=== PATIENT | female | born 1970 | race Caucasian/White ===

== ENCOUNTER 2017-04-06 10:53 | Emergency (ER) | payer OTHER ==
[~2017-04-06] VITALS: Ht 172.7 cm; Wt 72.6 kg
[2017-04-06] MEDS ORDERED: AUGMENTIN 875-1 EACH PO (11:26)
--- NOTE | 2017-04-06 11:27 | Emergency Room Report ---
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 N Clinical Suspician of Infection? Y Mental Status: 1 - Regular (Normal Baseline) Sepsis Risk:Low Sepsis Risk Have you (or family members/close friends) recently traveled outside the [place]? N If Yes, where/when: Have you had exposure to infectious disease within the past month? TB? Other? Specify: Right anterior thigh, right forearm bites sustained from her dog when her dogs started fighting this morning. Their shots are UTD. She immediately irrigated these areas. Event occurred about five hours GRAPHIC DESIGN INTERN. ALLERGIES Coded Allergies: No Known Drug Allergies (04/06/17) Home Medications Reported Medications No Known Home Medications History Medical History General CAD? No Angina: No AK: No Hypertension? No Hyperlipidemia? No CHF? No DVT? No PE? No COPD? No Asthma? No Anemia? No GERD? No Gastric ulcers? No GI Bleed? No Hernia? No Thyroid Problems? No Hypothyroidism? No CVA? No Seizures? No Diabetes? No Renal Insuffiency? No End Stage Renal Disease? No UTI? No Stones? No BPH? No GB Disease: No Nephritic Syndrome? No Asplenia? No Hepatitis? No Sickle Cell Disease? No Arthritis? No Migraines? No Cataracts? No Glaucoma? No MRSA? No HIV? No TB? No Anxiety? No Depression? No Cancer? No Site: N More? 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 Cardiovascular no peripheral edema Extremities abrasions, anterior right thigh, small laceration 0.5 cm to right forearm, no tendon exposure, no FB, shallow, no bleeding. No bruising. Strength 5 Upper Ext (L), 5 Upper Ext (R), 5 Lower Ext (L), 5 Lower Ext (R) Neurologic alert, no motor/sensory deficits, abnormal cerebellar tests Skin intact (see above) Medical Decision Making LABS/Meds/Orders Pt receiving controlled substance in ED? No Departure Departure Time of Disposition 1122 Disposition DC Home or Self Care(routine) Clinical Impression Primary Impression: Dog bite of right thigh Qualifiers: Encounter type: initial encounter Qualified Code: S71.151A - Open bite, right thigh, initial encounter Secondary Impressions: Dog bite of right forearm without complication Qualifiers: Encounter type: initial encounter Qualified Code: S51.851A - Open bite of right forearm, initial encounter Condition STABLE Patient Instructions DI for Dog Bite Additional Instructions Hot soaks twice a day, loosely bandage, need wound check at your family doctor's office in one to two days, watch for infection, take Aleve as needed, Rx Augmentin Discharge Counseling Counseled pt/family regarding diagnosis, medications/RX, home care, follow up needs Prescriptions Current Visit Scripts Amoxicillin/Potassium Clav (Augmentin 875-125 Tablet) 1 EACH PO BID #20 TAB ED Critical Care Critical Care No at 1126
--- NOTE | 2017-04-06 11:27 | Emergency Room Report ---
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 N Clinical Suspician of Infection? Y Mental Status: 1 - Regular (Normal Baseline) Sepsis Risk:Low Sepsis Risk Have you (or family members/close friends) recently traveled outside the [place]? N If Yes, where/when: Have you had exposure to infectious disease within the past month? TB? Other? Specify: Right anterior thigh, right forearm bites sustained from her dog when her dogs started fighting this morning. Their shots are UTD. She immediately irrigated these areas. Event occurred about five hours VISUAL PRESENTATION MANAGER. ALLERGIES Coded Allergies: No Known Drug Allergies (04/06/17) Home Medications Reported Medications No Known Home Medications History Medical History General CAD? No Angina: No NE: No Hypertension? No Hyperlipidemia? No CHF? No DVT? No PE? No COPD? No Asthma? No Anemia? No GERD? No Gastric ulcers? No GI Bleed? No Hernia? No Thyroid Problems? No Hypothyroidism? No CVA? No Seizures? No Diabetes? No Renal Insuffiency? No End Stage Renal Disease? No UTI? No Stones? No BPH? No GB Disease: No Nephritic Syndrome? No Asplenia? No Hepatitis? No Sickle Cell Disease? No Arthritis? No Migraines? No Cataracts? No Glaucoma? No MRSA? No HIV? No TB? No Anxiety? No Depression? No Cancer? No Site: N More? No Immunization Hx DT/Tetanus 5-10 Years Ago Surgical Hx Previous Surgery?Y Back Surgery [employer] Hx LMP menopause Social History Smoking Hx Smoker: Current Every Day Smoker Tobacco: Yes Type Cigarettes Packs/day 1 1/2 - 2 Packs Are you/the child exposed to second-hand smoke: No Alcohol Alcohol: No Review of Systems All Other Systems Reviewed and Negative Skin see HPI Physical Exam Vital Signs Vital Signs Date Time Temp Pulse Resp B/P Pulse O2 O2 Flow FiO2 Ox Delivery Rate 04/06 1103 97.7 83 20 175/97 97 General Appearance normal appearance, WD/WN, no apparent distress Eye Exam - bilateral eye normal exam, bilateral eye PERRL Respiratory Status No: respiratory distress. Cardiovascular no peripheral edema Extremities abrasions, anterior right thigh, small laceration 0.5 cm to right forearm, no tendon exposure, no FB, shallow, no bleeding. No bruising. Strength 5 Upper Ext (L), 5 Upper Ext (R), 5 Lower Ext (L), 5 Lower Ext (R) Neurologic alert, no motor/sensory deficits, abnormal cerebellar tests Skin intact (see above) Medical Decision Making LABS/Meds/Orders Pt receiving controlled substance in ED? No Departure Departure Time of Disposition 1122 Disposition DC Home or Self Care(routine) Clinical Impression Primary Impression: Dog bite of right thigh Qualifiers: Encounter type: initial encounter Qualified Code: S71.151A - Open bite, right thigh, initial encounter Secondary Impressions: Dog bite of right forearm without complication Qualifiers: Encounter type: initial encounter Qualified Code: S51.851A - Open bite of right forearm, initial encounter Condition STABLE Patient Instructions DI for Dog Bite Additional Instructions Hot soaks twice a day, loosely bandage, need wound check at your family doctor's office in one to two days, watch for infection, take Aleve as needed, Rx Augmentin Discharge Counseling Counseled pt/family regarding diagnosis, medications/RX, home care, follow up needs Prescriptions Current Visit Scripts Amoxicillin/Potassium Clav (Augmentin 875-125 Tablet) 1 EACH PO BID #20 TAB ED Critical Care Critical Care No at 1126
--- OUTSIDE RECORDS SUMMARY | 2017-04-06 11:34 | External Medical Summary Rpt ---
Demographics Home Phone Preferred Language Upper Sorbian Marital Status Unknown Holiness Affiliation Unknown Race Unknown Ethnic Group Unknown Author Author SAMEER Address Unknown Phone Purpose Continuity of Care Document - 05-03-2015 through 2016
--- OUTSIDE RECORDS SUMMARY | 2017-04-06 11:34 | External Medical Summary Rpt ---
Author Author [employer], [employer] Organization [employer] Address Unknown Phone Unavailable Results UA Observa Value Referen Units Interpr Notes Date tion ce etation Range UA Light No No No No May 06 Color Yellow informa informa informa informa 2014 tion in tion in tion in tion in 7:15 PM source source source source data data data data UA Clear Clear No No No May 06 Appear informa informa informa 2014 tion in tion in tion in 7:15 PM source source source data data data UA Negativ Negativ No No No May 06 Glucose e e informa informa informa 2014 tion in tion in tion in 7:15 PM source source source data data data UA Negativ Negativ No No No May 06 Ketones e e informa informa informa 2014 tion in tion in tion in 7:15 PM source source source data data data UA Trace Negativ No Abnorma No May 06 Blood e informa l informa 2014 tion in tion in 7:15 PM source source data data UA pH 5.5 4.8 - No No Referen May 06 8.0 informa informa ce 2014 tion in tion in range 7:15 PM source source valid data data for random specime ns only. UA Negativ Negativ No No No May 06 Protein e e informa informa informa 2014 tion in tion in tion in 7:15 PM source source source data data data UA Normal <=1 No No No May 06 Urobili mg/dl informa informa informa 2014 nogen tion in tion in tion in 7:15 PM source source source data data data UA Negativ Negativ No No No May 06 Nitrite e e informa informa informa 2014 tion in tion in tion in 7:15 PM source source source data data data UA Leuk Small Negativ No Abnorma No May 06 Est e informa l informa 2014 tion in tion in 7:15 PM source source data data UA Spec 1.009 1.001 - No No Referen May 06 Grav 1.035 informa informa ce 2014 tion in tion in range 7:15 PM source source valid data data for random specime ns only. UA WBC 5 0 - 4 /HPF High No Apr 28 informa 2014 tion in 7:15 PM source data UA RBC 3 0 - 3 /HPF No No Apr 28 informa informa 2014 tion in tion in 7:15 PM source source data data UA 4+ No No No No Apr 28 Squam informa informa informa informa 2015 Epi tion in tion in tion in tion in 7:15 PM source source source source data data data data UA Trace No No No No Apr 28 Mucous informa informa informa informa 2015 tion in tion in tion in tion in 7:15 PM source source source source data data data data UA Trace No No Abnorma No Apr 28 Bacteri informa informa l informa 2015 a tion in tion in tion in 7:15 PM source source source data data data UA Observa Value Referen Units Interpr Notes Date tion ce etation Range UA Yellow No No No No Apr 25 Color informa informa informa informa 2014 tion in tion in tion in tion in 11:10 source source source source PM data data data data UA Clear Clear No No No Apr 25 Appear informa informa informa 2014 tion in tion in tion in 11:10 source source source PM data data data UA Negativ Negativ No No No Apr 25 Glucose e e informa informa informa 2014 tion in tion in tion in 11:10 source source source PM data data data UA Negativ Negativ No No No Aug 25 Ketones e e informa informa informa 2014 tion in tion in tion in 11:10 source source source PM data data data UA Moderat Negativ No Abnorma No Apr 25 Blood e e informa l informa 2014 tion in tion in 11:10 source source PM data data UA pH 6.0 4.8 - No No Referen Aug 25 8.0 informa informa ce 2014 tion in tion in range 11:10 source source valid PM data data for random specime ns only. UA 30 Negativ No Abnorma No Aug 25 Protein mg/dl e informa l informa 2014 tion in tion in 11:10 source source PM data data UA Normal <=1 No No No Apr 25 Urobili mg/dl informa informa informa 2014 nogen tion in tion in tion in 11:10 source source source PM data data data UA Negativ Negativ No No No Apr 25 Nitrite e e informa informa informa 2014 tion in tion in tion in 11:10 source source source PM data data data UA Leuk Negativ Negativ No No No Apr 25 Est e e informa informa informa 2014 tion in tion in tion in 11:10 source source source PM data data data UA Spec 1.017 1.001 - No No Referen May 03 Grav 1.035 informa informa ce 2014 tion in tion in range 11:10 source source valid PM data data for random specime ns only. UA WBC 1 0 - 4 /HPF No No Apr 25 informa informa 2014 tion in tion in 11:10 source source PM data data UA RBC 4 0 - 3 /HPF High No Aug 25 informa 2014 tion in 11:10 source PM data UA 4+ No No No No Apr 25 Squam informa informa informa informa 2015 Epi tion in tion in tion in tion in 11:10 source source source source PM data data data data UA 2+ No No No No Apr 25 Mucous informa informa informa informa 2014 tion in tion in tion in tion in 11:10 source source source source PM data data data data DOA Screen Observa Value Referen Units Interpr Notes Date tion ce etation Range Cannabi Absent 50 No No No Aug 25 noid ng/mL informa informa informa 2015 Screen tion in tion in tion in 9:21 PM source source source data data data Benzodi Absent 200 No No No Apr 25 azepine ng/mL informa informa informa 2015 s tion in tion in tion in 9:21 PM Screen source source source data data data Cocaine Absent 150 No No No Aug 25 Screen ng/mL informa informa informa 2014 tion in tion in tion in 9:21 PM source source source data data data Opiate Presump 300 No Abnorma No Aug 25 300 tive ng/mL informa l informa 2015 Screen Pos tion in tion in 9:21 PM source source data data Barbitu Absent 200 No No No Apr 25 rate ng/mL informa informa informa 2014 Screen tion in tion in tion in 9:21 PM source source source data data data Ampheta Absent 500 No No No Apr 25 mine ng/mL informa informa informa 2014 Screen tion in tion in tion in 9:21 PM source source source data data data Phencyc Absent 25 No No No May 03 lidine ng/mL informa informa informa 2014 Screen tion in tion in tion in 9:21 PM source source source data data data Methado Absent 300 No No No May 03 ne ng/mL informa informa informa 2014 Screen tion in tion in tion in 9:21 PM source source source data data data Oxycodo Absent 100 No No No Apr 25 ne ng/mL informa informa informa 2014 Screen tion in tion in tion in 9:21 PM source source source data data data 6 AM Presump 10 No Abnorma No Apr 25 (Heroin tive ng/mL informa l informa 2014 ) Pos tion in tion in 9:21 PM Screen source source data data Bupreno Absent 5 ng/mL No No No May 03 rphine informa informa informa 2014 Screen tion in tion in tion in 9:21 PM source source source data data data Creatin 201.0 No mg/dL No \.br\Gr May 03 ine Ur informa informa eater 2015 tion in tion in than 9:21 PM source source 20: data data Consist ent with valid sample\ .br\Gre ater than 2 but less than 20: Possibl e dilutio n\.br\L ess than 2: Questio nable valid sample Procedu These No No No No Apr 25 re Note drug informa informa informa informa 2014 Screen classes tion in tion in tion in tion in 9:21 PM have source source source source been data data data data screene d by immunoa ssay and are for medical purpose s only. Results should not be used for non-med ical purpose s. These results are only valid for urine specime ns. Any contami nation with vaginal pool/am niotic fluid could cause erroneo us results . If confirm ation is desired , please place a separat e order for each drug confirm ation. Specime ns will be saved for 3 s days should additio nal orders/ testing be desired . Hep Prf-Ac Observa Value Referen Units Interpr Notes Date tion ce etation Range Hepatit Negativ Negativ No No No May 04 is B e e informa informa informa 2014 virus tion in tion in tion in 3:24 PM surface source source source Ag data data data [Presen ce] in Serum by Immunoa ssay Hep B Negativ Negativ No No No May 04 Core e e informa informa informa 2014 IgM tion in tion in tion in 3:24 PM source source source data data data Hepatit Negativ Negativ No No No May 04 is A e e informa informa informa 2015 virus tion in tion in tion in 3:24 PM Ab source source source [Units/ data data data volume] in Serum by Radioim munoass ay (STEFFEN) Hep C Negativ Negativ No No No May 04 Ab e e informa informa informa 2015 tion in tion in tion in 3:25 PM source source source data data data Hemogram Observa Value Referen Units Interpr Notes Date tion ce etation Range LEUKOCY 12.6 4.0 - x10(3)/ High No May 03 JUSTIN 11.0 mcL informa 2014 tion in 7:36 PM source data Erythro 4.58 3.80 - x10(6)/ No No May 03 cytes 5.10 mcL informa informa 2014 [#/volu tion in tion in 7:36 PM me] in source source Blood data data by Automat ed count Hemoglo 14.5 12.0 - gm/dL No No May 03 bin 15.6 informa informa 2014 [Mass/v tion in tion in 7:36 PM olume] source source in data data Blood Hematoc 43.7 35.7 - % No No May 03 rit 45.9 informa informa 2015 [Volume tion in tion in 7:36 PM source source Fractio data data n] of Blood by Automat ed count Erythro 95.4 82.5 - fL No No May 03 cyte 99.8 informa informa 2014 mean tion in tion in 7:36 PM corpusc source source ular data data volume [Entiti c volume] by Automat ed count Erythro 31.6 27.0 - pg No No May 03 cyte 34.3 informa informa 2015 mean tion in tion in 7:36 PM corpusc source source ular data data hemoglo bin [Entiti c mass] by Automat ed count Erythro 33.1 32.1 - gm/dL No No May 03 cyte 35.3 informa informa 2014 mean tion in tion in 7:36 PM corpusc source source ular data data hemoglo bin concent ration [Mass/v olume] by Automat ed count Erythro 13.2 11.5 - % No No May 03 cyte 15.0 informa informa 2015 distrib tion in tion in 7:36 PM ution source source width data data [Ratio] by Automat ed count Platele 234 144 - x10(3)/ No No May 03 ts 423 mcL informa informa 2014 [#/volu tion in tion in 7:36 PM me] in source source Blood data data by Automat ed count MPV 10.2 6.8 - fL No No May 03 10.8 informa informa 2014 tion in tion in 7:36 PM source source data data TSH Observa Value Referen Units Interpr Notes Date tion ce etation Range Thyrotr 0.342 0.270 - mcIU/mL No No May 03 opin 4.200 informa informa 2014 [Units/ tion in tion in 4:54 PM volume] source source in data data Serum or Plasma Mg Observa Value Referen Units Interpr Notes Date tion ce etation Range Magnesi 1.9 1.6 - mg/dL No No May 03 um 2.4 informa informa 2014 [Moles/ tion in tion in 4:54 PM volume] source source in data data Serum or Plasma GGT Observa Value Referen Units Interpr Notes Date tion ce etation Range Gamma 13 5 - 36 IU/L No No May 03 glutamy informa informa 2014 l tion in tion in 4:54 PM transfe source source rase data data [Enzyma tic activit y/volum e] in Serum or Plasma EK EKG 12 LEAD Observa Value Referen Units Interpr Notes Date ti ce etation Range Station No No No No May 03 verna ECG informa informa informa informa 2014 in in in in 10:45 Study\. source source source source AM br\St. data data data data Elizabe th Falmout h\.br\I nterpre tive Stateme nts\.br \Sinus rhythm\ .br\ST junctio nal depress ion is nonspec ific\.b r\Borde rline ECG\.br \Electr onicall y Signed On 05-03-20 13:48:4 1 EDT by Anthony Rivera MD
--- OUTSIDE RECORDS SUMMARY | 2017-04-06 11:34 | External Medical Summary Rpt ---
Demographics Home Phone Preferred Language Yakut Marital Status Unknown Orthodox Affiliation Unknown Race Unknown Ethnic Group Unknown Author Author SAMEER Address Unknown Phone Purpose Continuity of Care Document - 05-03-2015 through 2016
--- OUTSIDE RECORDS SUMMARY | 2017-04-06 11:34 | External Medical Summary Rpt ---
Demographics Preferred Language Setswana Marital Status Unknown Mandaeism Affiliation Unknown Race Unknown Ethnic Group Unknown Author Author , SAMEER ESTRELLA Address Unknown Phone Immunization Unable to retrieve immunization data due to connection failure with Immunization Registry. Please try again later.
--- OUTSIDE RECORDS SUMMARY | 2017-04-06 11:34 | External Medical Summary Rpt ---
Author Author [employer] Organization [employer] Address Unknown Phone Unavailable Purpose Continuity of Care Document - through 2016
--- OUTSIDE RECORDS SUMMARY | 2017-04-06 11:34 | External Medical Summary Rpt ---
Demographics Preferred Language [place]ut Marital Status Unknown Christianity Affiliation Unknown Race Unknown Ethnic Group Unknown Author Author , SAMEER ESTRELLA Address Unknown Phone Immunization Unable to retrieve immunization data due to connection failure with Immunization Registry. Please try again later.
[2017-04-06 11:50] VITALS: BP 148/80
== END 2017-04-06 11:51 | disposition home or self-care (01) ==
LOC: ER 10:53
DX: S70.371A Other superficial bite of right thigh, initial encounter (principal); S50.871A Other superficial bite of right forearm, initial encounter; W54.0XXA Bitten by dog, initial encounter